=== PATIENT | male | born 1965 | race Caucasian/White ===

== ENCOUNTER 2017-07-14 05:38 | Day surgery (SDC) | payer BC ==
[~2017-07-14] VITALS: Ht 177.8 cm; Wt 88.5 kg
[~2017-07-14 05:38] MED LIST: DAILY MULTIPLE1 EAC2 PO
[2017-07-14 06:57] VITALS: BP 121/80
[2017-07-14] MEDS ORDERED: PERCOCET 5/31 TABLET PO (08:27)
[2017-07-14 09:15] VITALS: BP 127/78
[2017-07-14 10:15] VITALS: BP 121/75
== END 2017-07-14 10:45 | disposition home or self-care (01) ==
LOC: SDC 05:38
PROC: 0WQF4ZZ Repair Abdominal Wall, Percutaneous Endoscopic Approach (ICD-10-PCS; principal; 2017-07-14)
DX: K42.0 Umbilical hernia with obstruction, without gangrene (principal); Z80.1 Family history of malignant neoplasm of trachea, bronchus and lung; Z80.8 Family history of malignant neoplasm of other organs or systems
CPT/HCPCS: C1781; J0131; J0690; J1100; J1170; J1885; J2250; J2405; J2710; J3010; S0020